=== PATIENT | female | born 1995 | race Caucasian/White ===

== ENCOUNTER 2023-04-26 18:48 | Emergency (ER) | payer OTHER ==
[~2023-04-26] VITALS: Ht 165.1 cm; Wt 65.9 kg
[~2023-04-26 18:48] MED LIST: ACET-784 PO; GUAIF10 PO
[2023-04-26 19:04] VITALS: BP 120/84; PULSE 88; RESP 18; TEMP 98.2
== END 2023-04-26 23:00 | disposition left against medical advice (07) ==
LOC: EMS 20:04
DX: R06.02 Shortness of breath (principal); Z53.21 Procedure and treatment not carried out due to patient leaving prior to being seen by health care provider
CPT/HCPCS: 99281; Z7502